=== PATIENT | male | born 1955 | race Caucasian/White ===

== ENCOUNTER → 2016-10-11 | Outpatient (CLI) | payer OTHER | LOC: M LAB 14:00 | PROVIDERS: ATTEND Family Medicine | DX: E11.65 Type 2 diabetes mellitus with hyperglycemia (principal) ==

== ENCOUNTER → 2017-04-11 | Outpatient (CLI) | payer OTHER ==
[2017-04-11 14:22] LABS: BASO % 0.4 % (0.0-1.0); EOS # 0.2 K/mm3 (0.0-0.50); EOS % 2.5 % (0.0-3.0); LARGE UNSTAINED CELL # 0.1 K/mm3 (0.0-0.4); LARGE UNSTAINED CELL % 1.4 % (0.0-4.0); LYMPH # 2.3 K/mm3 (1.5-4.5); LYMPH % 31.6 % (24.0-44.0); MEAN CORPUSCULAR HEMOGLOBIN 34.3 pg (27.0-33.0); MEAN CORPUSCULAR HGB CONC 33.8 g/dl (32.0-36.5); MEAN CORPUSCULAR VOLUME 101.6 fl (80.0-96.0); MONO # 0.5 K/mm3 (0.0-0.8); MONO % 6.4 % (0.0-5.0); NEUTROPHILS # 4.1 K/mm3 (1.8-7.7); NEUTROPHILS % 57.7 % (36.0-66.0); PLATELET COUNT, AUTOMATED 161 k/mm3 (150-450); RED CELL DISTRIBUTION WIDTH 14.3 % (11.5-14.5)
[2017-04-11 14:43] LABS: ALBUMIN/GLOBULIN RATIO 1.25 (1.00-1.93); BILIRUBIN,TOTAL 0.8 MG/DL (0.2-1.0); CALCIUM LEVEL 9.6 MG/DL (8.8-10.2); CREATININE FOR GFR 1.5 MG/DL (0.70-1.30); GLOMERULAR FILTRATION RATE 50.3 (>49); POTASSIUM SERUM 4.5 MEQ/L (3.5-5.1); TOTAL PROTEIN 7.2 GM/DL (6.4-8.2)
== END ==
LOC: M LAB 13:32
PROVIDERS: ATTEND Family Medicine
DX: E11.65 Type 2 diabetes mellitus with hyperglycemia (principal)

== ENCOUNTER 2017-07-18 12:20 | Outpatient (RCR) | payer OTHER | END 2017-07-19 | LOC: M CR 12:20 | PROVIDERS: ATTEND Internal Medicine Cardiovascular Disease | DX: I25.10 Atherosclerotic heart disease of native coronary artery without angina pectoris (principal); Z95.1 Presence of aortocoronary bypass graft ==

== ENCOUNTER 2017-07-20 09:22 | Outpatient (RCR) | payer OTHER | END 2017-08-19 | LOC: M CR 09:22 | DX: Z51.89 Encounter for other specified aftercare (principal); Z95.1 Presence of aortocoronary bypass graft; I25.10 Atherosclerotic heart disease of native coronary artery without angina pectoris ==

== ENCOUNTER 2017-08-21 12:00 | Outpatient (RCR) | payer OTHER ==
[2017-08-29 14:42] LABS: BEDSIDE GLUCOSE 142 MG/DL (80-115)
== END 2017-09-19 ==
LOC: M CR 12:00
DX: Z51.89 Encounter for other specified aftercare (principal); I25.10 Atherosclerotic heart disease of native coronary artery without angina pectoris

== ENCOUNTER 2017-09-20 09:52 | Outpatient (RCR) | payer OTHER | END 2017-10-17 | LOC: M CR 09:52 | DX: Z51.89 Encounter for other specified aftercare (principal); I25.10 Atherosclerotic heart disease of native coronary artery without angina pectoris ==

== ENCOUNTER → 2018-01-15 | Outpatient (CLI) | payer OTHER ==
[2018-01-15 14:24] LABS: BASO % 0.3 % (0.0-1.0); EOS # 0.2 10^3/uL (0.0-0.50); EOS % 2.6 % (0.0-3.0); HEMATOCRIT 41.3 % (42.0-52.0); HEMOGLOBIN 14.3 g/dl (13.5-17.5); IMMATURE GRANULOCYTE % 0.3 % (0-3.0); LYMPH # 2.1 10^3/uL (1.5-4.5); LYMPH % 31.2 % (24.0-44.0); MEAN CORPUSCULAR HEMOGLOBIN 33.1 pg (27.0-33.0); MEAN CORPUSCULAR HGB CONC 34.6 g/dl (32.0-36.5); MEAN CORPUSCULAR VOLUME 95.6 fl (80.0-96.0); MONO # 0.6 10^3/uL (0.0-0.8); MONO % 8.3 % (0.0-5.0); NEUTROPHILS # 3.8 10^3/uL (1.8-7.7); NEUTROPHILS % 57.3 % (36.0-66.0); PLATELET COUNT, AUTOMATED 167 10^3/uL (150-450); RED BLOOD COUNT 4.32 10^6/uL (4.30-6.10); RED CELL DISTRIBUTION WIDTH 14.2 % (11.5-14.5); WHITE BLOOD COUNT 6.6 10^3/uL (4.0-10.0)
[2018-01-15 15:18] LABS: CREATININE, URINE 55.8 MG/DL; MALB URINE SIEMENS 37.1 MG/L; MAU/CREAT RATIO 66.4 MCG/MG (0.0-30.0)
[2018-01-15 15:33] LABS: ESTIMATED AVERAGE GLUCOSE 134 MG/DL (60-110); HEMOGLOBIN A1c 6.3 %
[2018-01-15 15:34] LABS: ALBUMIN/GLOBULIN RATIO 1.33 (1.00-1.93); ALKALINE PHOSPHATASE 69 U/L (45-117); ALT/SGPT 49 U/L (12-78); ANION GAP 7 MEQ/L (8-16); AST/SGOT 35 U/L (7-37); BILIRUBIN,TOTAL 0.5 MG/DL (0.2-1.0); BLOOD UREA NITROGEN 13 MG/DL (7-18); CARBON DIOXIDE LEVEL 27 MEQ/L (21-32); CHLORIDE LEVEL 107 MEQ/L (98-107); CHOLESTEROL LEVEL 157 MG/DL (<200); CREATININE FOR GFR 1.32 MG/DL (0.70-1.30); GLOMERULAR FILTRATION RATE 58.3 (>49); GLUCOSE, FASTING 139 MG/DL (70-100); HDL CHOLESTEROL 47 MG/DL (>40); LDL CHOLESTEROL 74.8 MG/DL (<100); NON-HDL-C 110 MG/DL; POTASSIUM SERUM 4.4 MEQ/L (3.5-5.1); SODIUM LEVEL 141 MEQ/L (136-145); TRIGLYCERIDES LEVEL 176 MG/DL (<150)
== END ==
LOC: M LAB 13:54
DX: E11.69 Type 2 diabetes mellitus with other specified complication (principal)

== ENCOUNTER → 2018-03-27 | Outpatient (CLI) | payer OTHER | LOC: M RAD 14:25 | DX: R35.1 Nocturia (principal); R35.0 Frequency of micturition; R39.198 Other difficulties with micturition | CPT/HCPCS: 76857 ==

== ENCOUNTER → 2018-07-18 | Outpatient (CLI) | payer OTHER ==
[2018-07-18 15:03] LABS: ALBUMIN 3.8 GM/DL (3.2-5.2); ALBUMIN/GLOBULIN RATIO 1.23 (1.00-1.93); ALKALINE PHOSPHATASE 82 U/L (45-117); ALT/SGPT 101 U/L (12-78); ANION GAP 12 MEQ/L (8-16); AST/SGOT 68 U/L (7-37); BILIRUBIN,TOTAL 0.6 MG/DL (0.2-1.0); BLOOD UREA NITROGEN 16 MG/DL (7-18); CALCIUM LEVEL 8.9 MG/DL (8.8-10.2); CARBON DIOXIDE LEVEL 22 MEQ/L (21-32); CHLORIDE LEVEL 108 MEQ/L (98-107); CREATININE FOR GFR 1.52 MG/DL (0.70-1.30); GLOMERULAR FILTRATION RATE 49.4 (>49); GLUCOSE, FASTING 153 MG/DL (70-100); POTASSIUM SERUM 4.6 MEQ/L (3.5-5.1); SODIUM LEVEL 142 MEQ/L (136-145); TOTAL PROTEIN 6.9 GM/DL (6.4-8.2)
[2018-07-18 15:30] LABS: ESTIMATED AVERAGE GLUCOSE 143 MG/DL (60-110); HEMOGLOBIN A1c 6.6 %
== END ==
LOC: M LAB 13:52
DX: E11.69 Type 2 diabetes mellitus with other specified complication (principal)
CPT/HCPCS: 80053

== ENCOUNTER → 2019-01-21 | Outpatient (CLI) | payer MEDICARE, OTHER ==
[2019-01-21 15:34] LABS: HEMOGLOBIN A1c 7.1 %
[2019-01-21 15:36] LABS: BILIRUBIN,TOTAL 0.9 MG/DL (0.2-1.0); CALCIUM LEVEL 9.4 MG/DL (8.8-10.2); CHOLESTEROL RISK RATIO 3.717 (<5); CREATININE FOR GFR 1.36 MG/DL (0.70-1.30); GLOMERULAR FILTRATION RATE 56.2 (>49); POTASSIUM SERUM 4.5 MEQ/L (3.5-5.1); TOTAL PROTEIN 7.1 GM/DL (6.4-8.2)
[2019-01-21 15:38] LABS: BASO % 0.4 % (0.0-1.0); EOS # 0.2 10^3/uL (0.0-0.50); EOS % 2.2 % (0.0-3.0); HEMATOCRIT 43.6 % (42.0-52.0); HEMOGLOBIN 14.9 g/dl (13.5-17.5); LYMPH # 2.3 10^3/uL (1.5-4.5); LYMPH % 34.2 % (24.0-44.0); MEAN CORPUSCULAR HEMOGLOBIN 34.5 pg (27.0-33.0); MEAN CORPUSCULAR HGB CONC 34.2 g/dl (32.0-36.5); MEAN CORPUSCULAR VOLUME 100.9 fl (80.0-96.0); MONO # 0.6 10^3/uL (0.0-0.8); MONO % 8.8 % (0.0-5.0); NEUTROPHILS # 3.7 10^3/uL (1.8-7.7); NEUTROPHILS % 54.1 % (36.0-66.0); PLATELET COUNT, AUTOMATED 156 10^3/uL (150-450); RED BLOOD COUNT 4.32 10^6/uL (4.30-6.10); WHITE BLOOD COUNT 6.9 10^3/uL (4.0-10.0)
[2019-01-21 15:44] LABS: CREATININE, URINE 71.2 MG/DL; MAU/CREAT RATIO 67.4 MCG/MG (0.0-30.0)
== END ==
LOC: M LAB 14:18
PROVIDERS: ATTEND Family Medicine
DX: E11.69 Type 2 diabetes mellitus with other specified complication (principal)

== ENCOUNTER → 2019-04-22 | Outpatient (CLI) | payer MEDICARE, OTHER ==
[2019-04-22 14:58] LABS: ALBUMIN 3.8 GM/DL (3.2-5.2); BILIRUBIN,TOTAL 0.7 MG/DL (0.2-1.0); CALCIUM LEVEL 9.5 MG/DL (8.8-10.2); CREATININE FOR GFR 1.43 MG/DL (0.70-1.30); GLOMERULAR FILTRATION RATE 52.8 (>49); POTASSIUM SERUM 4.4 MEQ/L (3.5-5.1); TOTAL PROTEIN 7.1 GM/DL (6.4-8.2)
[2019-04-22 15:18] LABS: HEMOGLOBIN A1c 6.7 %
== END ==
LOC: M LAB 13:47
PROVIDERS: ATTEND Family Medicine
DX: E11.69 Type 2 diabetes mellitus with other specified complication (principal)

== ENCOUNTER → 2019-07-22 | Outpatient (CLI) | payer MEDICARE, OTHER ==
[2019-07-22 15:12] LABS: CALCIUM LEVEL 9.7 MG/DL (8.8-10.2); CREATININE FOR GFR 1.37 MG/DL (0.70-1.30); GLOMERULAR FILTRATION RATE 55.5 (>49); POTASSIUM SERUM 4.8 MEQ/L (3.5-5.1)
== END ==
LOC: M LAB 13:47
PROVIDERS: ATTEND Family Medicine
DX: E11.69 Type 2 diabetes mellitus with other specified complication (principal)

== ENCOUNTER → 2019-10-15 | Outpatient (CLI) | payer MEDICARE, OTHER ==
[2019-10-15 14:16] LABS: HEMOGLOBIN A1c 6.8 %
[2019-10-15 14:24] LABS: BLOOD UREA NITROGEN 11 MG/DL (7-18); CALCIUM LEVEL 9.6 MG/DL (8.8-10.2); CARBON DIOXIDE LEVEL 25 MEQ/L (21-32); CHLORIDE LEVEL 105 MEQ/L (98-107); CREATININE FOR GFR 1.21 MG/DL (0.70-1.30); GLOMERULAR FILTRATION RATE > 60.0 (>49); GLUCOSE, FASTING 168 MG/DL (70-100); POTASSIUM SERUM 4.7 MEQ/L (3.5-5.1); SODIUM LEVEL 136 MEQ/L (136-145)
== END ==
LOC: M LAB 13:07
PROVIDERS: ATTEND Family Medicine
DX: E11.69 Type 2 diabetes mellitus with other specified complication (principal)

== ENCOUNTER → 2020-01-19 | Outpatient (CLI) | payer MEDICARE, OTHER ==
[2020-01-19 15:16] LABS: HEMOGLOBIN A1c 6.8 %
[2020-01-19 15:32] LABS: CHOLESTEROL RISK RATIO 2.48 (<5)
[2020-01-19 15:40] LABS: CREATININE, URINE 42.9 MG/DL; MALB URINE SIEMENS 46.4 MG/L; MAU/CREAT RATIO 108.1 MCG/MG (0.0-30.0)
== END ==
LOC: M LAB 14:38
PROVIDERS: ATTEND Physician Assistant Medical
DX: E11.69 Type 2 diabetes mellitus with other specified complication (principal)

== ENCOUNTER → 2020-07-26 | Outpatient (CLI) | payer SELFPAY | LOC: M LABSMTC 15:47 | PROVIDERS: ATTEND Pediatrics | DX: Z20.828 Contact with and (suspected) exposure to other viral communicable diseases (principal) ==

== ENCOUNTER → 2020-08-23 | Outpatient (CLI) | payer MEDICARE, OTHER ==
[2020-08-23 16:23] LABS: HEMOGLOBIN A1c 6.1 %
[2020-08-24 15:10] LABS: Lyme Disease IgG/IgM Antibodie <0.91 ISR (0.00-0.90); Lyme Disease IgM Ab Quantitati <0.80 index (0.00-0.79)
== END ==
LOC: M LAB 13:03
PROVIDERS: ATTEND Physician Assistant Medical
DX: E11.69 Type 2 diabetes mellitus with other specified complication (principal); S60.862A Insect bite (nonvenomous) of left wrist, initial encounter; X58.XXXA Exposure to other specified factors, initial encounter; Y92.89 Other specified places as the place of occurrence of the external cause; Y93.89 Activity, other specified; Y99.8 Other external cause status

== ENCOUNTER → 2021-02-22 | Outpatient (CLI) | payer MEDICARE, OTHER ==
[2021-02-22 15:28] LABS: ALBUMIN 3.9 GM/DL (3.2-5.2); BILIRUBIN,TOTAL 1.2 MG/DL (0.2-1.0); CALCIUM LEVEL 9.5 MG/DL (8.8-10.2); CHOLESTEROL RISK RATIO 1.655 (<5); CREATININE FOR GFR 1.44 MG/DL (0.70-1.30); GLOMERULAR FILTRATION RATE 52.1 (>49); POTASSIUM SERUM 4.9 MEQ/L (3.5-5.1)
[2021-02-22 15:35] LABS: CREATININE, URINE 33.7 MG/DL; MALB URINE SIEMENS 67.6 MG/L; MAU/CREAT RATIO 200.5 MCG/MG (0.0-30.0)
[2021-02-22 18:03] LABS: HEMOGLOBIN A1c 5.6 %
== END ==
LOC: M LAB 14:14
PROVIDERS: ATTEND Physician Assistant Medical
DX: E11.69 Type 2 diabetes mellitus with other specified complication (principal); E78.5 Hyperlipidemia, unspecified

== ENCOUNTER → 2021-04-26 | Outpatient (REF) | payer MEDICARE, OTHER ==
[2021-04-26 18:39] LABS: MAGNESIUM LEVEL 2.3 MG/DL (1.8-2.4)
[2021-04-27 09:39] LABS: FOLATE 10.3 NG/ML
== END ==
LOC: M LAB REF 17:55
PROVIDERS: ATTEND Nurse Practitioner Family
DX: D64.9 Anemia, unspecified (principal); E83.42 Hypomagnesemia

== ENCOUNTER → 2021-05-05 | Outpatient (CLI) | payer MEDICARE, OTHER ==
[2021-05-05 15:38] LABS: BLOOD UREA NITROGEN 8 MG/DL (7-18); CALCIUM LEVEL 9.2 MG/DL (8.8-10.2); CARBON DIOXIDE LEVEL 26 MEQ/L (21-32); CHLORIDE LEVEL 100 MEQ/L (98-107); CHOLESTEROL LEVEL 95 MG/DL (<200); CHOLESTEROL RISK RATIO 1.507 (<5); CREATININE FOR GFR 1.26 MG/DL (0.70-1.30); GLOMERULAR FILTRATION RATE > 60.0 (>49); GLUCOSE, FASTING 105 MG/DL (70-100); HDL CHOLESTEROL 63 MG/DL (>40); LDL CHOLESTEROL 20 MG/DL (<100); NON-HDL-C 32 MG/DL; POTASSIUM SERUM 4.7 MEQ/L (3.5-5.1); SODIUM LEVEL 135 MEQ/L (136-145); TRIGLYCERIDES LEVEL 61 MG/DL (<150)
== END ==
LOC: M LAB 14:07
PROVIDERS: ATTEND Physician Assistant
DX: E78.2 Mixed hyperlipidemia (principal); I10 Essential (primary) hypertension

== ENCOUNTER → 2021-05-19 | Outpatient (CLI) | payer MEDICARE, OTHER ==
[2021-05-19 15:44] LABS: CALCIUM LEVEL 9.2 MG/DL (8.8-10.2); CREATININE FOR GFR 2.08 MG/DL (0.70-1.30); GLOMERULAR FILTRATION RATE 34.1 (>49); POTASSIUM SERUM 4.8 MEQ/L (3.5-5.1)
== END ==
LOC: M LAB 14:53
PROVIDERS: ATTEND Physician Assistant
DX: I10 Essential (primary) hypertension (principal)

== ENCOUNTER → 2021-05-31 | Outpatient (REF) | payer MEDICARE, OTHER ==
[2021-05-31 18:56] LABS: PERCENT SATURATION 49.4 % (19.7-50.0)
== END ==
LOC: M LAB REF 17:06
PROVIDERS: ATTEND Nurse Practitioner Family
DX: D50.9 Iron deficiency anemia, unspecified (principal)

== ENCOUNTER → 2021-06-13 | Outpatient (CLI) | payer MEDICARE, OTHER ==
--- NOTE | 2021-06-13 18:27 | REP ---
INDICATION: CKD 3A, RETENTION OF URINE. COMPARISON: 05/07/2015. TECHNIQUE: Real-time sonographic evaluation of the kidneys and urinary bladder is performed. FINDINGS: Renal cortical echogenicity pattern is normal bilaterally and contours are smooth. There is no hydronephrosis bilaterally. A simple cyst in the mid right kidney measures 1.5 cm in diameter. A simple cyst in the mid left kidney measures 2.3 cm in diameter. The right kidney measures 10.0 x 4.0 x 5.8 cm. Left renal dimensions are 13.7 x 6.2 x 7.0 cm. Urinary bladder measures 14.6 x 7.0 x 5.3 cm, total volume 352 cc. Postvoid residual is 221 cc, 63% of the original volume. No bladder wall mass or calculus is seen. Ureteral jets could not be visualized with Doppler color evaluation. IMPRESSION: No hydronephrosis. Bilateral renal cysts. Postvoid residual 63% with no evidence of bladder wall mass or calculus. <Electronically signed by Theo Brooke > 06/13/21 [id number]
== END ==
LOC: M RAD 14:37
PROVIDERS: ATTEND Nurse Practitioner Family
DX: N18.31 Chronic kidney disease, stage 3a (principal); R33.9 Retention of urine, unspecified; N28.1 Cyst of kidney, acquired

== ENCOUNTER → 2021-10-18 | Outpatient (CLI) | payer MEDICARE, OTHER ==
[2021-10-18 14:19] LABS: CALCIUM LEVEL 9.4 MG/DL (8.8-10.2); CREATININE FOR GFR 1.76 MG/DL (0.70-1.30); GLOMERULAR FILTRATION RATE 41.3 (>49); POTASSIUM SERUM 3.7 MEQ/L (3.5-5.1)
[2021-10-18 15:10] LABS: HEMOGLOBIN A1c 5.3 %
== END ==
LOC: M LAB 13:22
PROVIDERS: ATTEND Nurse Practitioner Family
DX: E11.69 Type 2 diabetes mellitus with other specified complication (principal)

== ENCOUNTER → 2022-04-13 | Outpatient (REF) | payer MEDICARE, OTHER ==
[2022-04-14 17:34] LABS: PERCENT SATURATION 66.7 % (19.7-50.0)
[2022-04-14 17:59] LABS: RBC, URINE NONE SEEN /hpf (0-3); SQUAMOUS EPITHELIAL CELL URINE SMALL AMOUNT /hpf (SMALL AMT); WBC, URINE NONE SEEN /hpf (0-3)
[2022-04-14 18:00] LABS: BACTERIA, URINE SMALL AMOUNT; HYALINE CAST, URINE NONE SEEN /lpf (0-1); MUCUS, URINE SMALL AMOUNT (NEGATIVE)
== END ==
LOC: M LAB REF 16:34
PROVIDERS: ATTEND Nurse Practitioner Family
DX: D50.9 Iron deficiency anemia, unspecified (principal); R31.9 Hematuria, unspecified

== ENCOUNTER → 2022-05-04 | Outpatient (CLI) | payer MEDICARE, OTHER ==
[2022-05-04 16:09] LABS: CREATININE, URINE 36.9 MG/DL; MALB URINE SIEMENS 43.8 MG/L; MAU/CREAT RATIO 118.6 MCG/MG (0.0-30.0)
[2022-05-04 16:09] LABS: ALBUMIN 2.6 GM/DL (3.2-5.2); BILIRUBIN,TOTAL 0.7 MG/DL (0.2-1.0); CALCIUM LEVEL 9.4 MG/DL (8.8-10.2); CHOLESTEROL RISK RATIO 1.637 (<5); CREATININE FOR GFR 1.53 MG/DL (0.70-1.30); GLOMERULAR FILTRATION RATE 48.4 (>49); POTASSIUM SERUM 3.8 MEQ/L (3.5-5.1); TOTAL PROTEIN 6.3 GM/DL (6.4-8.2)
[2022-05-04 17:56] LABS: HEMOGLOBIN A1c 4.9 %
== END ==
LOC: M LAB 14:24
PROVIDERS: ATTEND Nurse Practitioner Family
DX: E11.69 Type 2 diabetes mellitus with other specified complication (principal)

== ENCOUNTER → 2022-10-25 | Outpatient (CLI) | payer MEDICARE, OTHER ==
[2022-10-25 14:20] LABS: ALBUMIN 2.7 G/DL (3.2-5.2); BILIRUBIN,TOTAL 1.5 MG/DL (0.3-1.2); CALCIUM LEVEL 8.8 MG/DL (8.3-10.6); CREATININE FOR GFR 1.47 MG/DL (0.70-1.30); GLOMERULAR FILTRATION RATE 50.7 (>49); POTASSIUM SERUM 4.2 MMOL/L (3.5-5.1); TOTAL PROTEIN 6.5 G/DL (5.7-8.2)
[2022-10-25 14:35] LABS: HEMOGLOBIN A1c 4.6 % (4.0-6.0)
== END ==
LOC: M LAB 13:10
PROVIDERS: ATTEND Nurse Practitioner Family
DX: E11.69 Type 2 diabetes mellitus with other specified complication (principal); I10 Essential (primary) hypertension; E78.5 Hyperlipidemia, unspecified

== ENCOUNTER → 2022-12-11 | Outpatient (CLI) | payer MEDICARE, OTHER ==
[2022-12-11 15:56] LABS: BASO % 0.3 % (0.0-1.0); EOS # 0.1 10^3/uL (0.0-0.5); EOS % 1.5 % (0.0-3.0); HEMATOCRIT 32.1 % (42.0-52.0); HEMOGLOBIN 10.5 g/dl (13.5-17.5); LYMPH # 1.5 10^3/uL (1.5-5.0); LYMPH % 22.6 % (24.0-44.0); MEAN CORPUSCULAR HGB CONC 32.7 g/dl (32.0-36.5); MEAN CORPUSCULAR VOLUME 109.9 fl (80.0-96.0); MONO # 0.7 10^3/uL (0.0-0.8); MONO % 9.9 % (2.0-8.0); NEUTROPHILS # 4.3 10^3/uL (1.5-8.5); NEUTROPHILS % 65.4 % (36.0-66.0); RED BLOOD COUNT 2.92 10^6/uL (4.30-6.10); WHITE BLOOD COUNT 6.5 10^3/uL (4.0-10.0)
[2022-12-11 16:09] LABS: INR 1.12; PARTIAL THROMBOPLASTIN TIME 32.1 SECONDS (24.8-34.2); PROTHROMBIN TIME 14.6 SECONDS (12.5-14.5)
[2022-12-11 16:17] LABS: ALBUMIN 2.3 G/DL (3.2-5.2); BILIRUBIN,TOTAL 1.5 MG/DL (0.3-1.2); TOTAL PROTEIN 6.1 G/DL (5.7-8.2)
[2022-12-11 16:18] LABS: FERRITIN 417.9 NG/ML (10.5-307.3)
[2022-12-11 16:59] LABS: PLATELET COUNT, AUTOMATED 87 10^3/uL (150-450)
== END ==
LOC: M LAB 14:48
PROVIDERS: ATTEND Nurse Practitioner Family
DX: R58 Hemorrhage, not elsewhere classified (principal)

== ENCOUNTER 2023-03-05 12:58 | Inpatient (IN) | payer MEDICARE, OTHER ==
[~2023-03-05] VITALS: Ht 180.3 cm; Wt 76.5 kg
[2023-03-05 14:05] LABS: VENOUS PH 7.296 UNITS (7.330-7.430)
[2023-03-05 14:06] LABS: VENOUS BASE EXCESS -6.2 (-2.0-2.0); VENOUS HCO3 19.9 MMOL/L (23.0-27.0); VENOUS O2 SATURATION 68.1 % (60.0-80.0); VENOUS PARTIAL PRESSURE CO2 41.8 mmHg (38.0-50.0); VENOUS PARTIAL PRESSURE O2 39.6 mmHg (30.0-50.0); VENOUS STANDARD HCO3 18.9 MMOL/L; VENOUS TOTAL CO2 21.2 MMOL/L (24.0-28.0)
[2023-03-05 14:12] LABS: EOS # 0.1 10^3/uL (0.0-0.5); EOS % 0.9 % (0.0-3.0); HEMATOCRIT 26.5 % (42.0-52.0); HEMOGLOBIN 8.5 g/dl (13.5-17.5); LYMPH # 1.8 10^3/uL (1.5-5.0); LYMPH % 27.1 % (24.0-44.0); MEAN CORPUSCULAR HEMOGLOBIN 34.3 pg (27.0-33.0); MEAN CORPUSCULAR HGB CONC 32.1 g/dl (32.0-36.5); MEAN CORPUSCULAR VOLUME 106.9 fl (80.0-96.0); MONO # 0.3 10^3/uL (0.0-0.8); MONO % 4.9 % (2.0-8.0); NEUTROPHILS # 4.4 10^3/uL (1.5-8.5); NEUTROPHILS % 66.8 % (36.0-66.0); RED BLOOD COUNT 2.48 10^6/uL (4.30-6.10); WHITE BLOOD COUNT 6.6 10^3/uL (4.0-10.0)
[2023-03-05 14:14] LABS: PLATELET COUNT, AUTOMATED 80 10^3/uL (150-450)
[2023-03-05 14:22] LABS: INR 1.13; PROTHROMBIN TIME 14.7 SECONDS (12.5-14.5)
[2023-03-05 14:37] LABS: ALBUMIN 1.6 G/DL (3.2-5.2); BILIRUBIN,DIRECT 0.5 MG/DL (<0.4); BILIRUBIN,TOTAL 0.9 MG/DL (0.3-1.2); CALCIUM LEVEL 8.7 MG/DL (8.3-10.6); CREATININE FOR GFR 3.42 MG/DL (0.70-1.30); GLOMERULAR FILTRATION RATE 19.1 (>49); POTASSIUM SERUM 4.3 MMOL/L (3.5-5.1); TOTAL PROTEIN 5.9 G/DL (5.7-8.2)
[2023-03-05 14:40] LABS: THYROID STIMULATING HORMONE 4.959 uIU/ML (0.55-4.78)
[2023-03-05] MEDS ORDERED: THIAMINE 200MG 2ML VIAL IM ONE (16:45)
[2023-03-05] MEDS ORDERED: LORazepam 2 MG TAB PO PRN ×2 (16:55→20:00)
[2023-03-05] MEDS ORDERED: THIAMINE 100 MG TAB PO SCH (17:00)
[2023-03-05 18:01] LABS: MAGNESIUM LEVEL 2.2 MG/DL (1.8-2.4)
[2023-03-05] MEDS ORDERED: PANTOPRAZOLE 40MG VIAL IV SCH (20:00)
[2023-03-05 20:26] LABS: OSMOLALITY URINE 264 MOSM/KG (50-1400)
[2023-03-05 20:47] LABS: TOTAL PROTEIN,RANDOM URINE 79.5 MG/DL (0.0-14.0)
[2023-03-05 20:51] LABS: CREATININE,RANDOM URINE 110.5 MG/DL
[2023-03-05 20:51] LABS: FREE T4 0.74 NG/DL (0.89-1.76)
[2023-03-05 20:53] LABS: SODIUM,RANDOM URINE < 10 MMOL/L
[2023-03-05] MEDS ORDERED: FUROSEMIDE 100MG/10ML VIAL IV ONE (22:10)
[2023-03-05] MEDS: AUGMENTIN 500MG TAB PO SCH (22:33)
[2023-03-05 23:08] LABS: IONIZED CALCIUM 4.7 MG/DL (4.5-5.3)
[2023-03-05] MEDS ORDERED: B-12100T2 PO (23:08)
[2023-03-05] MEDS ORDERED: OMEP1CAP73 PO (23:08)
[2023-03-05] MEDS ORDERED: ALLO10TA PO (23:08)
[2023-03-05] MEDS ORDERED: B-1100TA2 PO (23:08)
[2023-03-05] MEDS ORDERED: CARV12.5 PO (23:08)
[2023-03-05] MEDS ORDERED: ROSU40TA4 PO (23:08)
[2023-03-05] MEDS ORDERED: HOME MED LIST COMPLETE! XX SCH (23:10)
[2023-03-05 23:18] LABS: HEMATOCRIT 24.3 % (42.0-52.0); HEMOGLOBIN 7.7 g/dl (13.5-17.5)
[2023-03-05 23:36] LABS: URIC ACID 6.3 MG/DL (3.7-9.2)
[2023-03-05 23:38] LABS: CALCIUM LEVEL 7.7 MG/DL (8.3-10.6); CREATININE FOR GFR 3.4 MG/DL (0.70-1.30); GLOMERULAR FILTRATION RATE 19.2 (>49); MAGNESIUM LEVEL 2.2 MG/DL (1.8-2.4); POTASSIUM SERUM 4.4 MMOL/L (3.5-5.1)
[2023-03-06 05:36] LABS: HEMATOCRIT 27.2 % (42.0-52.0); HEMOGLOBIN 8.7 g/dl (13.5-17.5)
[2023-03-06 05:37] LABS: HEMOGLOBIN 8.7 g/dl (13.5-17.5); MEAN CORPUSCULAR HEMOGLOBIN 34.3 pg (27.0-33.0); MEAN CORPUSCULAR HGB CONC 32.2 g/dl (32.0-36.5); MEAN CORPUSCULAR VOLUME 106.3 fl (80.0-96.0); RED BLOOD COUNT 2.54 10^6/uL (4.30-6.10); WHITE BLOOD COUNT 6.1 10^3/uL (4.0-10.0)
[2023-03-06 05:40] LABS: PLATELET COUNT, AUTOMATED 79 10^3/uL (150-450)
[2023-03-06 05:54] LABS: URIC ACID 6.4 MG/DL (3.7-9.2)
[2023-03-06 05:56] LABS: ALBUMIN 1.6 G/DL (3.2-5.2); BILIRUBIN,TOTAL 0.9 MG/DL (0.3-1.2); CREATININE FOR GFR 3.46 MG/DL (0.70-1.30); GLOMERULAR FILTRATION RATE 18.8 (>49); MAGNESIUM LEVEL 2.2 MG/DL (1.8-2.4); POTASSIUM SERUM 4.3 MMOL/L (3.5-5.1); TOTAL PROTEIN 5.9 G/DL (5.7-8.2)
[2023-03-06] MEDS: LEVOTHYROXINE 25MCG TABLET (0.025MG) PO SCH (06:02)
[2023-03-06] MEDS: MULTIVITAMINS/MINERALS THERAP 1 TAB PO SCH (07:19)
[2023-03-06] MEDS: FOLIC ACID 1MG TAB PO SCH (07:19)
[2023-03-06] MEDS: THIAMINE 100 MG TAB PO SCH ×2 (07:19→20:51)
[2023-03-06] MEDS ORDERED: PANTOPRAZOLE 40MG VIAL IV SCH (08:00)
[2023-03-06] MEDS: CIPRODEX OTIC SUSP 7.5ML AS SCH ×2 (09:00→21:23)
[2023-03-06] MEDS ORDERED: FOLIC ACID 1MG TAB PO SCH (09:00)
[2023-03-06] MEDS ORDERED: MULTIVITAMINS/MINERALS THERAP 1 TAB PO SCH (09:00)
[2023-03-06] MEDS ORDERED: FUROSEMIDE 100MG/10ML VIAL IV ONE (11:00)
[2023-03-06 11:50] LABS: C REACTIVE PROTEIN QUANTITATIV 1.5 MG/DL (<1.0)
[2023-03-06 12:03] LABS: PROCALCITONIN 0.28 ng/ml
[2023-03-06] MEDS: MIDODRINE 5 MG TAB PO SCH ×2 (13:28→16:00)
[2023-03-06] MEDS: OCTREOTIDE ACETATE 100MCG/ML VIAL **SC ADMINISTRATION ONLY SC SCH ×2 (13:28→20:00)
[2023-03-06] MEDS: AUGMENTIN 500MG TAB PO SCH ×2 (13:29→21:23)
[2023-03-06 15:24] LABS: SOURCE, BODY FLUID ASCITES
[2023-03-06 15:25] LABS: APPEARANCE, BODY FLUID CLEAR (CLEAR); ASCITES FL COLOR YELLOW (COLORLESS)
[2023-03-06 15:53] LABS: SOURCE, BODY FLUID ALBUMIN ASCITES
[2023-03-06 15:57] LABS: SOURCE, BODY FLUID GLUCOSE ASCITES
[2023-03-06 16:00] LABS: SOURCE, BODY FLUID TOT PROTEIN ASCITES; TOTAL PROTEIN, BODY FLUID 2.5 G/DL (NOT ESTABLISHED)
[2023-03-06] MEDS ORDERED: CIPRODEX OTIC SUSP 7.5ML As Ordered ONE (16:01)
[2023-03-06] MEDS ORDERED: PHENYLEPHRINE 0.5% NASAL SPRAY 15 ML As Ordered ONE (16:01)
[2023-03-06] MEDS ORDERED: LIDOCAINE 2% 100MG/5ML SDV (FOR ANES.) As Ordered ONE (16:07)
[2023-03-06] MEDS ORDERED: propofoL 200 MG/20 ML VIAL As Ordered ONE (16:07)
[2023-03-06] MEDS ORDERED: ONDANSETRON 4MG 2ML VIAL As Ordered ONE (16:08)
[2023-03-06] MEDS ORDERED: fentaNYL 100 MCG/2 ML INJECTION As Ordered ONE (16:08)
[2023-03-06] MEDS ORDERED: VASOPRESSIN INJ 20UNITS/ML 1ML VIAL As Ordered ONE (17:03)
[2023-03-06 17:52] VITALS: BP 126/58; TEMP 96.7; O2SAT 99
[2023-03-06 18:34] VITALS: BP 109/59; O2SAT 88
[2023-03-06 20:00] VITALS: BP 107/58; TEMP 97; O2SAT 100; O2SAT 98
[2023-03-06 22:00] VITALS: BP 107/58
[2023-03-06 23:42] VITALS: BP 98/51; TEMP 97.1; O2SAT 99
[2023-03-06 23:57] VITALS: BP 102/52; TEMP 96.5; O2SAT 100
[2023-03-07] VITALS (23 sets, daily range): BP systolic 96–142; BP diastolic 51–80; TEMP 96.5–98.3; O2SAT 95–100
[2023-03-07] MEDS: OCTREOTIDE ACETATE 100MCG/ML VIAL **SC ADMINISTRATION ONLY SC SCH ×3 (03:39→20:27)
[2023-03-07] MEDS ORDERED: BENZOIN TINCTURE 60ML BTL TOP ONE (05:50)
[2023-03-07] MEDS: LEVOTHYROXINE 25MCG TABLET (0.025MG) PO SCH (06:12)
[2023-03-07 06:30] LABS: C REACTIVE PROTEIN QUANTITATIV 1.3 MG/DL (<1.0)
[2023-03-07 06:37] LABS: PROCALCITONIN 0.29 ng/ml
[2023-03-07 06:43] LABS: ALBUMIN 1.7 G/DL (3.2-5.2); BILIRUBIN,TOTAL 0.7 MG/DL (0.3-1.2); CALCIUM LEVEL 7.8 MG/DL (8.3-10.6); CREATININE FOR GFR 3.81 MG/DL (0.70-1.30); GLOMERULAR FILTRATION RATE 16.8 (>49); MAGNESIUM LEVEL 2.3 MG/DL (1.8-2.4); POTASSIUM SERUM 4.6 MMOL/L (3.5-5.1); TOTAL PROTEIN 5.1 G/DL (5.7-8.2)
[2023-03-07 07:32] LABS: EOS # 0.1 10^3/uL (0.0-0.5); EOS % 0.9 % (0.0-3.0); HEMATOCRIT 23.8 % (42.0-52.0); HEMOGLOBIN 7.6 g/dl (13.5-17.5); LYMPH % 36.1 % (24.0-44.0); MEAN CORPUSCULAR HEMOGLOBIN 34.5 pg (27.0-33.0); MEAN CORPUSCULAR HGB CONC 31.9 g/dl (32.0-36.5); MEAN CORPUSCULAR VOLUME 108.2 fl (80.0-96.0); MONO # 0.3 10^3/uL (0.0-0.8); MONO % 5.7 % (2.0-8.0); NEUTROPHILS # 3.1 10^3/uL (1.5-8.5); NEUTROPHILS % 56.9 % (36.0-66.0); WHITE BLOOD COUNT 5.4 10^3/uL (4.0-10.0)
[2023-03-07 07:42] LABS: PLATELET COUNT, AUTOMATED 76 10^3/uL (150-450)
[2023-03-07] MEDS: MIDODRINE 5 MG TAB PO SCH ×3 (08:00→16:00)
[2023-03-07] MEDS: MULTIVITAMINS/MINERALS THERAP 1 TAB PO SCH (09:12)
[2023-03-07] MEDS: FOLIC ACID 1MG TAB PO SCH (09:12)
[2023-03-07] MEDS: AUGMENTIN 500MG TAB PO SCH ×2 (09:12→20:26)
[2023-03-07] MEDS: THIAMINE 100 MG TAB PO SCH ×2 (09:12→20:27)
[2023-03-07] MEDS: PANTOPRAZOLE 40MG TAB (PROTONIX) PO SCH (09:12)
[2023-03-07] MEDS: CIPRODEX OTIC SUSP 7.5ML AS SCH ×2 (09:13→20:27)
[2023-03-07] MEDS ORDERED: HEPARIN 1,000UNITS/ML 10ML VIAL (FOR RADIOLOGY & DIALYSIS ONLY) XX SCH (10:15)
[2023-03-07] MEDS ORDERED: SODIUM CHLORIDE 0.9% 1000ML IV PRN (10:15)
[2023-03-07] MEDS ORDERED: HEPARIN 1,000UNITS/ML 10ML VIAL (FOR RADIOLOGY & DIALYSIS ONLY) IV PRN (10:15)
[2023-03-07 10:21] LABS: HEPATITIS B SURFACE ANTIBODY NEGATIVE (POSITIVE)
[2023-03-07 10:54] LABS: HEPATITIS B CORE ANTIBODY IGM NEGATIVE (NEGATIVE)
[2023-03-07 10:57] LABS: INR 1.35; PROTHROMBIN TIME 16.9 SECONDS (12.5-14.5)
[2023-03-07 10:58] LABS: PARTIAL THROMBOPLASTIN TIME 32.6 SECONDS (24.8-34.2)
[2023-03-07] MEDS ORDERED: MIDAZOLAM INJ 2MG/2ML VIAL As Ordered ONE (11:42)
[2023-03-07] MEDS ORDERED: fentaNYL 100 MCG/2 ML INJECTION As Ordered ONE (11:42)
[2023-03-07] MEDS ORDERED: HEPARIN 1,000UNITS/ML 10ML VIAL (FOR RADIOLOGY & DIALYSIS ONLY) As Ordered ONE (11:43)
[2023-03-07] MEDS ORDERED: LIDOCAINE W/EPINEPHRINE 1% 20ML VIAL As Ordered ONE (11:43)
[2023-03-07 13:55] LABS: HEMATOCRIT 23.4 % (42.0-52.0); HEMOGLOBIN 7.5 g/dl (13.5-17.5)
[2023-03-07 18:15] LABS: HEMATOCRIT 33.3 % (42.0-52.0)
[2023-03-07 18:19] LABS: HEMOGLOBIN 11.2 g/dl (13.5-17.5)
[2023-03-08] VITALS (19 sets, daily range): BP systolic 115–147; BP diastolic 58–68; TEMP 97.1–97.9; O2SAT 96–99
[2023-03-08] MEDS: OCTREOTIDE ACETATE 100MCG/ML VIAL **SC ADMINISTRATION ONLY SC SCH (03:26)
[2023-03-08] MEDS ORDERED: SODIUM CHLORIDE 0.9% 1000ML IV PRN (05:15)
[2023-03-08] MEDS ORDERED: HEPARIN 1,000UNITS/ML 10ML VIAL (FOR RADIOLOGY & DIALYSIS ONLY) IV PRN (05:15)
[2023-03-08] MEDS ORDERED: HEPARIN 1,000UNITS/ML 10ML VIAL (FOR RADIOLOGY & DIALYSIS ONLY) XX SCH (05:15)
[2023-03-08 05:16] LABS: EOS # 0.1 10^3/uL (0.0-0.5); EOS % 1.8 % (0.0-3.0); HEMATOCRIT 30.1 % (42.0-52.0); HEMOGLOBIN 9.9 g/dl (13.5-17.5); LYMPH # 1.7 10^3/uL (1.5-5.0); LYMPH % 34.4 % (24.0-44.0); MEAN CORPUSCULAR HEMOGLOBIN 33.1 pg (27.0-33.0); MEAN CORPUSCULAR HGB CONC 32.9 g/dl (32.0-36.5); MEAN CORPUSCULAR VOLUME 100.7 fl (80.0-96.0); MONO # 0.3 10^3/uL (0.0-0.8); MONO % 6.1 % (2.0-8.0); NEUTROPHILS # 2.9 10^3/uL (1.5-8.5); NEUTROPHILS % 57.3 % (36.0-66.0); RED BLOOD COUNT 2.99 10^6/uL (4.30-6.10); WHITE BLOOD COUNT 5.1 10^3/uL (4.0-10.0)
[2023-03-08 05:31] LABS: PLATELET COUNT, AUTOMATED 68 10^3/uL (150-450)
[2023-03-08 05:33] LABS: C REACTIVE PROTEIN QUANTITATIV 1.1 MG/DL (<1.0)
[2023-03-08] MEDS: FOLIC ACID 1MG TAB PO SCH (06:08)
[2023-03-08] MEDS: LEVOTHYROXINE 25MCG TABLET (0.025MG) PO SCH (06:08)
[2023-03-08] MEDS: CIPRODEX OTIC SUSP 7.5ML AS SCH ×2 (06:08→20:31)
[2023-03-08] MEDS: MIDODRINE 5 MG TAB PO SCH (08:00)
[2023-03-08 08:33] LABS: PROCALCITONIN 0.26 ng/ml
[2023-03-08 08:40] LABS: ALBUMIN 1.9 G/DL (3.2-5.2); BILIRUBIN,TOTAL 1.4 MG/DL (0.3-1.2); CALCIUM LEVEL 7.7 MG/DL (8.3-10.6); CREATININE FOR GFR 2.36 MG/DL (0.70-1.30); GLOMERULAR FILTRATION RATE 29.3 (>49); MAGNESIUM LEVEL 1.7 MG/DL (1.8-2.4); POTASSIUM SERUM 3.6 MMOL/L (3.5-5.1); TOTAL PROTEIN 4.8 G/DL (5.7-8.2)
[2023-03-08] MEDS ORDERED: MAG SULF 1GM/100ML (MAG RUN) 1 GM in IV 1 EA IV ONE (10:00)
[2023-03-08] MEDS: MULTIVITAMINS/MINERALS THERAP 1 TAB PO SCH (13:27)
[2023-03-08] MEDS: MAGNESIUM OXIDE 400MG TAB (MAG-OX) PO SCH ×2 (13:27→20:31)
[2023-03-08] MEDS: PANTOPRAZOLE 40MG TAB (PROTONIX) PO SCH (13:27)
[2023-03-08] MEDS: AUGMENTIN 500MG TAB PO SCH ×2 (13:27→20:31)
[2023-03-08] MEDS: THIAMINE 100 MG TAB PO SCH ×2 (13:27→20:32)
[2023-03-08] MEDS ORDERED: traMADol 50 MG TAB PO PRN (15:25)
[2023-03-08] MEDS ORDERED: ACETAMINOPHEN 500 MG TAB PO PRN (15:25)
[2023-03-09 03:51] VITALS: BP 145/72; TEMP 98.4; O2SAT 98
[2023-03-09] MEDS: LEVOTHYROXINE 25MCG TABLET (0.025MG) PO SCH (05:20)
[2023-03-09 05:34] LABS: HEMATOCRIT 27.3 % (42.0-52.0); HEMOGLOBIN 9.1 g/dl (13.5-17.5); LYMPH # 1.1 10^3/uL (1.5-5.0); LYMPH % 26.8 % (24.0-44.0); MEAN CORPUSCULAR HEMOGLOBIN 33.5 pg (27.0-33.0); MEAN CORPUSCULAR HGB CONC 33.3 g/dl (32.0-36.5); MEAN CORPUSCULAR VOLUME 100.4 fl (80.0-96.0); MONO # 0.3 10^3/uL (0.0-0.8); MONO % 6.6 % (2.0-8.0); NEUTROPHILS # 2.6 10^3/uL (1.5-8.5); NEUTROPHILS % 65.3 % (36.0-66.0); RED BLOOD COUNT 2.72 10^6/uL (4.30-6.10)
[2023-03-09 05:45] LABS: ALBUMIN 2.1 G/DL (3.2-5.2); CALCIUM LEVEL 7.4 MG/DL (8.3-10.6); CREATININE FOR GFR 1.73 MG/DL (0.70-1.30); GLOMERULAR FILTRATION RATE 41.9 (>49); MAGNESIUM LEVEL 1.7 MG/DL (1.8-2.4); POTASSIUM SERUM 3.5 MMOL/L (3.5-5.1)
[2023-03-09 06:07] LABS: PLATELET COUNT, AUTOMATED 53 10^3/uL (150-450)
[2023-03-09] MEDS: MAG SULF 1GM/100ML (MAG RUN) 1 GM in IV 1 EA IV SCH ×2 (07:07→08:28)
[2023-03-09 07:29] VITALS: BP 141/67; TEMP 97.8; O2SAT 96
[2023-03-09] MEDS: MULTIVITAMINS/MINERALS THERAP 1 TAB PO SCH (08:27)
[2023-03-09] MEDS: PANTOPRAZOLE 40MG TAB (PROTONIX) PO SCH (08:27)
[2023-03-09] MEDS: FOLIC ACID 1MG TAB PO SCH (08:27)
[2023-03-09] MEDS: MAGNESIUM OXIDE 400MG TAB (MAG-OX) PO SCH ×2 (08:27→21:29)
[2023-03-09] MEDS: CIPRODEX OTIC SUSP 7.5ML AS SCH ×2 (08:28→21:29)
[2023-03-09] MEDS: AUGMENTIN 500MG TAB PO SCH ×2 (08:28→21:29)
[2023-03-09] MEDS: LACTULOSE 20GM/30ML SYRUP UDC PO SCH ×2 (11:12→21:00)
[2023-03-09 11:26] VITALS: BP 139/76; TEMP 98.1; O2SAT 97
[2023-03-09 16:18] VITALS: BP 139/72; TEMP 97.3; O2SAT 97
[2023-03-09 20:00] VITALS: BP 149/78; TEMP 97.5; O2SAT 97
[2023-03-10] VITALS (8 sets, daily range): BP systolic 113–143; BP diastolic 56–81; TEMP 97.2–98.6; O2SAT 96–100
[2023-03-10] MEDS: LEVOTHYROXINE 25MCG TABLET (0.025MG) PO SCH (06:10)
[2023-03-10 06:40] LABS: BASO % 0.3 % (0.0-1.0); EOS # 0.1 10^3/uL (0.0-0.5); HEMATOCRIT 27.2 % (42.0-52.0); HEMOGLOBIN 9.2 g/dl (13.5-17.5); LYMPH # 1.9 10^3/uL (1.5-5.0); LYMPH % 30.5 % (24.0-44.0); MEAN CORPUSCULAR HEMOGLOBIN 33.7 pg (27.0-33.0); MEAN CORPUSCULAR HGB CONC 33.8 g/dl (32.0-36.5); MEAN CORPUSCULAR VOLUME 99.6 fl (80.0-96.0); MONO # 0.5 10^3/uL (0.0-0.8); MONO % 7.8 % (2.0-8.0); NEUTROPHILS # 3.6 10^3/uL (1.5-8.5); NEUTROPHILS % 59.1 % (36.0-66.0); RED BLOOD COUNT 2.73 10^6/uL (4.30-6.10); WHITE BLOOD COUNT 6.1 10^3/uL (4.0-10.0)
[2023-03-10 06:49] LABS: PLATELET COUNT, AUTOMATED 53 10^3/uL (150-450)
[2023-03-10 07:06] LABS: ALBUMIN 1.9 G/DL (3.2-5.2); BILIRUBIN,TOTAL 0.7 MG/DL (0.3-1.2); CALCIUM LEVEL 7.4 MG/DL (8.3-10.6); CREATININE FOR GFR 2.13 MG/DL (0.70-1.30); POTASSIUM SERUM 3.6 MMOL/L (3.5-5.1)
[2023-03-10] MEDS: LACTULOSE 20GM/30ML SYRUP UDC PO SCH ×2 (09:00→09:15)
[2023-03-10] MEDS: FOLIC ACID 1MG TAB PO SCH (09:16)
[2023-03-10] MEDS: MULTIVITAMINS/MINERALS THERAP 1 TAB PO SCH (09:16)
[2023-03-10] MEDS: MAGNESIUM OXIDE 400MG TAB (MAG-OX) PO SCH ×2 (09:16→21:05)
[2023-03-10] MEDS: PANTOPRAZOLE 40MG TAB (PROTONIX) PO SCH (09:16)
[2023-03-10] MEDS: AUGMENTIN 500MG TAB PO SCH ×2 (09:16→21:05)
[2023-03-10] MEDS: CIPRODEX OTIC SUSP 7.5ML AS SCH ×2 (09:16→21:05)
[2023-03-10] MEDS ORDERED: FUROSEMIDE 100MG/10ML VIAL IV ONE (12:00)
[2023-03-11 00:27] VITALS: BP 127/67; TEMP 97.6; O2SAT 100
[2023-03-11 04:20] VITALS: BP 125/58; TEMP 97.2; O2SAT 99
[2023-03-11] MEDS: LEVOTHYROXINE 25MCG TABLET (0.025MG) PO SCH (05:52)
[2023-03-11 06:52] LABS: BASO % 0.2 % (0.0-1.0); EOS # 0.1 10^3/uL (0.0-0.5); EOS % 2.4 % (0.0-3.0); LYMPH # 2.1 10^3/uL (1.5-5.0); LYMPH % 35.3 % (24.0-44.0); MEAN CORPUSCULAR HEMOGLOBIN 33.2 pg (27.0-33.0); MEAN CORPUSCULAR HGB CONC 33.3 g/dl (32.0-36.5); MEAN CORPUSCULAR VOLUME 99.6 fl (80.0-96.0); MONO # 0.4 10^3/uL (0.0-0.8); MONO % 7.1 % (2.0-8.0); NEUTROPHILS # 3.2 10^3/uL (1.5-8.5); NEUTROPHILS % 54.7 % (36.0-66.0); RED BLOOD COUNT 2.71 10^6/uL (4.30-6.10); WHITE BLOOD COUNT 5.9 10^3/uL (4.0-10.0)
[2023-03-11 06:55] LABS: PLATELET COUNT, AUTOMATED 52 10^3/uL (150-450)
[2023-03-11 07:20] LABS: ALBUMIN 1.9 G/DL (3.2-5.2); BILIRUBIN,TOTAL 0.7 MG/DL (0.3-1.2); CALCIUM LEVEL 7.5 MG/DL (8.3-10.6); CREATININE FOR GFR 2.51 MG/DL (0.70-1.30); GLOMERULAR FILTRATION RATE 27.3 (>49); MAGNESIUM LEVEL 1.9 MG/DL (1.8-2.4); POTASSIUM SERUM 3.4 MMOL/L (3.5-5.1); TOTAL PROTEIN 5.2 G/DL (5.7-8.2)
[2023-03-11 07:37] VITALS: BP 104/56; TEMP 96.8; O2SAT 98
[2023-03-11 07:47] LABS: INR 1.18; PROTHROMBIN TIME 15.3 SECONDS (12.5-14.5)
[2023-03-11] MEDS: MULTIVITAMINS/MINERALS THERAP 1 TAB PO SCH (09:19)
[2023-03-11] MEDS: FOLIC ACID 1MG TAB PO SCH (09:19)
[2023-03-11] MEDS: PANTOPRAZOLE 40MG TAB (PROTONIX) PO SCH (09:19)
[2023-03-11] MEDS: AUGMENTIN 500MG TAB PO SCH ×2 (09:19→20:21)
[2023-03-11] MEDS: CIPRODEX OTIC SUSP 7.5ML AS SCH ×2 (09:20→20:22)
[2023-03-11] MEDS: MAGNESIUM OXIDE 400MG TAB (MAG-OX) PO SCH ×2 (09:20→20:21)
[2023-03-11] MEDS: LACTULOSE 20GM/30ML SYRUP UDC PO SCH (09:23)
[2023-03-11 11:41] VITALS: BP 126/68; TEMP 97.4; O2SAT 100
[2023-03-11] MEDS ORDERED: POTASSIUM CHLORIDE 10MEQ SR TABLET PO ONE (13:00)
[2023-03-11] MEDS: TORSEMIDE 20 MG TAB PO SCH ×2 (13:11→20:22)
[2023-03-11 16:00] VITALS: BP 124/64; TEMP 98.6; O2SAT 98
[2023-03-11] MEDS: SPIRONOLACTONE 50 MG TAB PO SCH (16:17)
[2023-03-11 20:00] VITALS: BP 141/70; TEMP 97.2; O2SAT 99
[2023-03-12] VITALS: BP 121/63; TEMP 97.9; O2SAT 97
[2023-03-12 03:38] VITALS: BP 125/71; TEMP 97.5; O2SAT 98
[2023-03-12 05:09] LABS: BASO % 0.3 % (0.0-1.0); EOS # 0.2 10^3/uL (0.0-0.5); EOS % 2.3 % (0.0-3.0); HEMATOCRIT 27.7 % (42.0-52.0); LYMPH # 2.3 10^3/uL (1.5-5.0); LYMPH % 35.6 % (24.0-44.0); MEAN CORPUSCULAR HEMOGLOBIN 32.4 pg (27.0-33.0); MEAN CORPUSCULAR HGB CONC 32.5 g/dl (32.0-36.5); MEAN CORPUSCULAR VOLUME 99.6 fl (80.0-96.0); MONO # 0.4 10^3/uL (0.0-0.8); MONO % 6.5 % (2.0-8.0); NEUTROPHILS # 3.5 10^3/uL (1.5-8.5); NEUTROPHILS % 54.8 % (36.0-66.0); RED BLOOD COUNT 2.78 10^6/uL (4.30-6.10); WHITE BLOOD COUNT 6.4 10^3/uL (4.0-10.0)
[2023-03-12 05:16] LABS: PLATELET COUNT, AUTOMATED 67 10^3/uL (150-450)
[2023-03-12 05:36] LABS: ALBUMIN 1.9 G/DL (3.2-5.2); BILIRUBIN,TOTAL 0.7 MG/DL (0.3-1.2); CALCIUM LEVEL 7.7 MG/DL (8.3-10.6); CREATININE FOR GFR 2.94 MG/DL (0.70-1.30); GLOMERULAR FILTRATION RATE 22.7 (>49); POTASSIUM SERUM 3.9 MMOL/L (3.5-5.1); TOTAL PROTEIN 5.3 G/DL (5.7-8.2)
[2023-03-12] MEDS: FOLIC ACID 1MG TAB PO SCH (06:11)
[2023-03-12] MEDS: LEVOTHYROXINE 25MCG TABLET (0.025MG) PO SCH (06:11)
[2023-03-12] MEDS: CIPRODEX OTIC SUSP 7.5ML AS SCH (06:12)
[2023-03-12 08:00] VITALS: BP 120/68; TEMP 98.1; O2SAT 97
[2023-03-12] MEDS: LACTULOSE 20GM/30ML SYRUP UDC PO SCH (09:00)
[2023-03-12] MEDS: AUGMENTIN 500MG TAB PO SCH (09:20)
[2023-03-12] MEDS: SPIRONOLACTONE 50 MG TAB PO SCH (09:20)
[2023-03-12] MEDS: MAGNESIUM OXIDE 400MG TAB (MAG-OX) PO SCH (09:21)
[2023-03-12] MEDS: TORSEMIDE 20 MG TAB PO SCH (09:21)
[2023-03-12] MEDS: MULTIVITAMINS/MINERALS THERAP 1 TAB PO SCH (09:21)
[2023-03-12] MEDS: PANTOPRAZOLE 40MG TAB (PROTONIX) PO SCH (09:21)
[2023-03-12 12:33] VITALS: BP 151/86; TEMP 96.9; O2SAT 96
[2023-03-12] MEDS ORDERED: OCTREOTIDE ACETATE 100MCG/ML VIAL **SC ADMINISTRATION ONLY SC SCH (14:00)
[2023-03-12] MEDS ORDERED: MORPHINE 10MG/0.5ML ORAL CONCENTRATE SOLUTION U/D SL PRN (14:45)
[2023-03-12] MEDS ORDERED: HYOSCYAMINE SULFATE 0.125 MG SUBL TABLET PO PRN (14:45)
[2023-03-12] MEDS ORDERED: LORazepam 1 MG TAB PO PRN (14:45)
[2023-03-12] MEDS ORDERED: ONDANSETRON 4MG ORAL DISINTEGRATING TAB PO PRN (14:45)
[2023-03-12 15:09] VITALS: BP 149/75; TEMP 97.1; O2SAT 95
[2023-03-12] MEDS ORDERED: LACTULOSE 20GM/30ML SYRUP UDC PO PRN (15:35)
[2023-03-13] MEDS: PANTOPRAZOLE 40MG TAB (PROTONIX) PO SCH (09:00)
[2023-03-14] MEDS: PANTOPRAZOLE 40MG TAB (PROTONIX) PO SCH (09:01)
[2023-03-15] MEDS: PANTOPRAZOLE 40MG TAB (PROTONIX) PO SCH (08:36)
[2023-03-16] MEDS: PANTOPRAZOLE 40MG TAB (PROTONIX) PO SCH (08:38)
[2023-03-16] MEDS ORDERED: OXYC1TAB23 PO (13:39)
[2023-03-16] MEDS ORDERED: ATIV1TAB10 PO (13:39)
== END 2023-03-16 14:05 | disposition left against medical advice (07) | DRG 987 ==
LOC: M ED 12:58 → EDBD 12:58 → M ED INP 19:56 → ENRESERV 03-06 14:43 → M PCU 03-06 18:00 → M MS5PR 03-14 22:00
PROVIDERS: ADMIT Internal Medicine; ATTEND Internal Medicine
PROC: 30233N1 Transfusion of Nonautologous Red Blood Cells into Peripheral Vein, Percutaneous Approach (ICD-10-PCS; 2023-03-06)
PROC: F09Z3ZZ Cerumen Management Treatment (ICD-10-PCS; 2023-03-06)
PROC: 099 Ear, Nose, Sinus, Drainage (ICD-10-PCS; principal; 2023-03-06 14:00)
PROC: 0W9G3ZZ Drainage of Peritoneal Cavity, Percutaneous Approach (ICD-10-PCS; 2023-03-07)
PROC: 0JH63XZ Insertion of Tunneled Vascular Access Device into Chest Subcutaneous Tissue and Fascia, Percutaneous Approach (ICD-10-PCS; 2023-03-07)
PROC: 02HV33Z Insertion of Infusion Device into Superior Vena Cava, Percutaneous Approach (ICD-10-PCS; 2023-03-07)
PROC: 5A1D70Z Performance of Urinary Filtration, Intermittent, Less than 6 Hours Per Day (ICD-10-PCS; 2023-03-07)
DX: K70.31 Alcoholic cirrhosis of liver with ascites (principal); K76.7 Hepatorenal syndrome; N17.9 Acute kidney failure, unspecified; N39.0 Urinary tract infection, site not specified; J90 Pleural effusion, not elsewhere classified; J98.11 Atelectasis; E87.20 Acidosis, unspecified; E87.1 Hypo-osmolality and hyponatremia; K76.6 Portal hypertension; Q60.0 Renal agenesis, unilateral; I13.0 Hypertensive heart and chronic kidney disease with heart failure and stage 1 through stage 4 chronic kidney disease, or unspecified chronic kidney disease; I50.32 Chronic diastolic (congestive) heart failure; D69.6 Thrombocytopenia, unspecified; N18.30 Chronic kidney disease, stage 3 unspecified; I12.9 Hypertensive chronic kidney disease with stage 1 through stage 4 chronic kidney disease, or unspecified chronic kidney disease; M46.1 Sacroiliitis, not elsewhere classified; E78.5 Hyperlipidemia, unspecified; I25.10 Atherosclerotic heart disease of native coronary artery without angina pectoris; K21.9 Gastro-esophageal reflux disease without esophagitis; R53.1 Weakness; H66.92 Otitis media, unspecified, left ear; H70.92 Unspecified mastoiditis, left ear; R19.7 Diarrhea, unspecified; M54.9 Dorsalgia, unspecified; G89.29 Other chronic pain; R26.9 Unspecified abnormalities of gait and mobility; R60.0 Localized edema; Z95.1 Presence of aortocoronary bypass graft; R29.6 Repeated falls; M10.9 Gout, unspecified; R60.1 Generalized edema; H61.23 Impacted cerumen, bilateral; E03.9 Hypothyroidism, unspecified; D63.8 Anemia in other chronic diseases classified elsewhere; R62.7 Adult failure to thrive; E87.70 Fluid overload, unspecified; M51.36 Other intervertebral disc degeneration, lumbar region; E78.00 Pure hypercholesterolemia, unspecified; E83.42 Hypomagnesemia; M48.061 Spinal stenosis, lumbar region without neurogenic claudication; R16.1 Splenomegaly, not elsewhere classified; Z79.899 Other long term (current) drug therapy

== ENCOUNTER → 2023-03-26 | Outpatient (REF) | payer MEDICARE, OTHER ==
[~2023-03-26] MED LIST: ALLO10TA PO; ATIV1TAB10 PO; B-1100TA2 PO; B-12100T2 PO; CARV12.5 PO; OMEP1CAP73 PO; OXYC1TAB23 PO; ROSU40TA4 PO
[2023-03-26 18:04] LABS: FOLATE 13.1 NG/ML (>5.4)
== END ==
LOC: M LAB REF 17:04
PROVIDERS: ATTEND Nurse Practitioner Family
DX: N18.9 Chronic kidney disease, unspecified (principal); D63.1 Anemia in chronic kidney disease

== ENCOUNTER 2023-03-31 13:37 | Inpatient (IN) | payer MEDICARE, OTHER ==
[2023-03-31] VITALS (19 sets, daily range): BP systolic 72–122; BP diastolic 47–62; O2SAT 91–100
[~2023-03-31] VITALS: Ht 180.3 cm; Wt 75.6 kg
[2023-03-31] MEDS ORDERED: PANTOPRAZOLE 40MG VIAL IV ONE (14:10)
[2023-03-31] MEDS ORDERED: OCTREOTIDE ACETATE 100MCG/ML VIAL **IV ADMINISTRATION ONLY IV ONE (14:10)
[2023-03-31] MEDS ORDERED: NADO40TA PO (14:31)
[2023-03-31] MEDS ORDERED: SPIR50TA4 PO (14:31)
[2023-03-31] MEDS ORDERED: NS 1,000 ML IV ONE (14:50)
[2023-03-31 14:52] LABS: BASO % 0.1 % (0.0-1.0); EOS % 0.5 % (0.0-3.0); HEMATOCRIT 40.6 % (42.0-52.0); HEMOGLOBIN 13.7 g/dl (13.5-17.5); LYMPH # 3.6 10^3/uL (1.5-5.0); LYMPH % 44.4 % (24.0-44.0); MEAN CORPUSCULAR HEMOGLOBIN 31.9 pg (27.0-33.0); MEAN CORPUSCULAR HGB CONC 33.7 g/dl (32.0-36.5); MEAN CORPUSCULAR VOLUME 94.6 fl (80.0-96.0); MONO # 0.5 10^3/uL (0.0-0.8); MONO % 5.7 % (2.0-8.0); NEUTROPHILS # 3.9 10^3/uL (1.5-8.5); NEUTROPHILS % 49.1 % (36.0-66.0); PLATELET COUNT, AUTOMATED 231 10^3/uL (150-450); RED BLOOD COUNT 4.29 10^6/uL (4.30-6.10)
[2023-03-31 15:04] LABS: INR 1.07; PROTHROMBIN TIME 13.6 SECONDS (12.5-14.5)
[2023-03-31 15:05] LABS: PARTIAL THROMBOPLASTIN TIME 30.6 SECONDS (24.8-34.2)
[2023-03-31 15:27] LABS: MAGNESIUM LEVEL 2.3 MG/DL (1.8-2.4); PHOSPHORUS LEVEL 6.8 MG/DL (2.4-5.1)
[2023-03-31 15:28] LABS: RSV AMPLIFICATION NEGATIVE (NEGATIVE)
[2023-03-31 15:29] LABS: FREE T4 0.82 NG/DL (0.89-1.76); THYROID STIMULATING HORMONE 22.006 uIU/ML (0.55-4.78)
[2023-03-31 15:33] LABS: ALBUMIN 2.3 G/DL (3.2-5.2); BILIRUBIN,DIRECT 0.8 MG/DL (<0.4); BILIRUBIN,TOTAL 1.5 MG/DL (0.3-1.2); CALCIUM LEVEL 8.6 MG/DL (8.3-10.6); CK-MB VALUE MASS 2.8 NG/ML (<3.6); CREATININE FOR GFR 5.51 MG/DL (0.70-1.30); MB/CK RELATIVE INDEX 5.95 (< OR =4); POTASSIUM SERUM 5.5 MMOL/L (3.5-5.1); TOTAL PROTEIN 6.9 G/DL (5.7-8.2)
[2023-03-31] MEDS ORDERED: MED REC IN PROGRESS XX SCH (16:25)
[2023-03-31] MEDS ORDERED: LR 1,000 ML IV ONE (16:30)
[2023-03-31] MEDS ORDERED: HOME MED LIST COMPLETE! XX SCH (17:15)
[2023-03-31 18:41] LABS: ABG BASE EXCESS -11.6 (-2.0-2.0); ABG HCO3 13.7 MMOL/L (22.0-26.0); ABG O2 SATURATION 98.4 % (95.0-99.0); ABG PARTIAL PRESSURE CO2 29.5 mmHg (35.0-45.0); ABG PARTIAL PRESSURE O2 151.5 mmHg (75.0-100.0); ABG STANDARD HCO3 15.3 MMOL/L. (22.0-26.0); ABG TOTAL CO2 14.6 MMOL/L (23.0-31.0); ABG pH (ARTERIAL) 7.286 UNITS (7.350-7.450)
[2023-03-31] MEDS: DOPamine HCL 400 MG in IV 1 EA IV SCH ×2 (19:07→19:25)
[2023-03-31] MEDS: PANTOPRAZOLE 40MG VIAL IV SCH (20:45)
[2023-03-31 21:05] LABS: OSMOLALITY URINE 358 MOSM/KG (50-1400)
[2023-03-31 21:12] LABS: HEMATOCRIT 36.9 % (42.0-52.0); HEMOGLOBIN 11.9 g/dl (13.5-17.5); MEAN CORPUSCULAR HEMOGLOBIN 31.9 pg (27.0-33.0); MEAN CORPUSCULAR HGB CONC 32.2 g/dl (32.0-36.5); MEAN CORPUSCULAR VOLUME 98.9 fl (80.0-96.0); PLATELET COUNT, AUTOMATED 200 10^3/uL (150-450); RED BLOOD COUNT 3.73 10^6/uL (4.30-6.10); WHITE BLOOD COUNT 8.3 10^3/uL (4.0-10.0)
[2023-03-31 21:26] LABS: CREATININE,RANDOM URINE 156.6 MG/DL
[2023-03-31 21:28] LABS: SODIUM,RANDOM URINE < 10 MMOL/L
[2023-03-31 21:40] LABS: CALCIUM LEVEL 8.2 MG/DL (8.3-10.6); CREATININE FOR GFR 5.58 MG/DL (0.70-1.30); GLOMERULAR FILTRATION RATE 10.8 (>49); PHOSPHORUS LEVEL 6.8 MG/DL (2.4-5.1); POTASSIUM SERUM 4.6 MMOL/L (3.5-5.1)
[2023-03-31] MEDS: HYDROMORPHONE HCL 0.5 MG/ 0.5 ML SYRINGE IV PRN (22:02)
[2023-04-01] VITALS (79 sets, daily range): BP systolic 85–123; BP diastolic 51–72; TEMP 96.2–97.6; O2SAT 65–100
[2023-04-01] MEDS: LORazepam 2 MG/ML 1ML VIAL IV PRN ×2 (00:14→21:04)
[2023-04-01] MEDS: HYDROMORPHONE HCL 0.5 MG/ 0.5 ML SYRINGE IV PRN (00:15)
[2023-04-01 00:43] LABS: HEMATOCRIT 42.6 % (42.0-52.0); HEMOGLOBIN 13.2 g/dl (13.5-17.5); MEAN CORPUSCULAR HEMOGLOBIN 31.9 pg (27.0-33.0); MEAN CORPUSCULAR VOLUME 102.9 fl (80.0-96.0); PLATELET COUNT, AUTOMATED 189 10^3/uL (150-450); RED BLOOD COUNT 4.14 10^6/uL (4.30-6.10); WHITE BLOOD COUNT 10.1 10^3/uL (4.0-10.0)
[2023-04-01 07:09] LABS: HEMATOCRIT 40.9 % (42.0-52.0); HEMOGLOBIN 12.9 g/dl (13.5-17.5); MEAN CORPUSCULAR HEMOGLOBIN 31.7 pg (27.0-33.0); MEAN CORPUSCULAR HGB CONC 31.5 g/dl (32.0-36.5); MEAN CORPUSCULAR VOLUME 100.5 fl (80.0-96.0); PLATELET COUNT, AUTOMATED 196 10^3/uL (150-450); RED BLOOD COUNT 4.07 10^6/uL (4.30-6.10); WHITE BLOOD COUNT 13.5 10^3/uL (4.0-10.0)
[2023-04-01 07:39] LABS: CALCIUM LEVEL 8.2 MG/DL (8.3-10.6); CREATININE FOR GFR 5.71 MG/DL (0.70-1.30); GLOMERULAR FILTRATION RATE 10.6 (>49); POTASSIUM SERUM 5.8 MMOL/L (3.5-5.1)
[2023-04-01] MEDS: PANTOPRAZOLE 40MG VIAL IV SCH (08:43)
[2023-04-01 12:19] LABS: HEMOGLOBIN 13.3 g/dl (13.5-17.5); MEAN CORPUSCULAR HEMOGLOBIN 31.9 pg (27.0-33.0); MEAN CORPUSCULAR HGB CONC 31.7 g/dl (32.0-36.5); MEAN CORPUSCULAR VOLUME 100.7 fl (80.0-96.0); PLATELET COUNT, AUTOMATED 173 10^3/uL (150-450); RED BLOOD COUNT 4.17 10^6/uL (4.30-6.10); WHITE BLOOD COUNT 11.4 10^3/uL (4.0-10.0)
[2023-04-01] MEDS ORDERED: SODIUM BICARBONATE 150 MEQ in D5W 1,000 ML IV SCH (13:00)
[2023-04-01] MEDS: DOPamine HCL 400 MG in IV 1 EA IV SCH ×2 (13:50→14:54)
[2023-04-01 14:42] LABS: ABG BASE EXCESS -13.3 (-2.0-2.0); ABG HCO3 12.7 MMOL/L (22.0-26.0); ABG STANDARD HCO3 14.1 MMOL/L. (22.0-26.0)
[2023-04-01 14:45] LABS: ABG O2 SATURATION 92.8 % (95.0-99.0); ABG PARTIAL PRESSURE O2 72.3 mmHg (75.0-100.0); ABG TOTAL CO2 13.6 MMOL/L (23.0-31.0)
[2023-04-01 14:47] LABS: ABG pH (ARTERIAL) 7.243 UNITS (7.350-7.450)
[2023-04-01 15:01] LABS: CALCIUM LEVEL 8.2 MG/DL (8.3-10.6); CREATININE FOR GFR 5.92 MG/DL (0.70-1.30); GLOMERULAR FILTRATION RATE 10.1 (>49); POTASSIUM SERUM 5.3 MMOL/L (3.5-5.1)
[2023-04-01] MEDS ORDERED: fentaNYL 100 MCG/2 ML INJECTION IV ONE (18:25)
[2023-04-01] MEDS ORDERED: FUROSEMIDE 100MG/10ML VIAL IV ONE (20:15)
[2023-04-02] VITALS (28 sets, daily range): BP systolic 73–103; BP diastolic 50–61; TEMP 96–97.3; O2SAT 82–98
[2023-04-02 05:20] LABS: CALCIUM LEVEL 8.2 MG/DL (8.3-10.6); CREATININE FOR GFR 6.02 MG/DL (0.70-1.30); GLOMERULAR FILTRATION RATE 9.9 (>49); POTASSIUM SERUM 5.3 MMOL/L (3.5-5.1)
[2023-04-02] MEDS: LORazepam 2 MG/ML 1ML VIAL IV PRN (05:27)
[2023-04-02] MEDS: PANTOPRAZOLE 40MG VIAL IV SCH (09:20)
[2023-04-02] MEDS: DOPamine HCL 400 MG in IV 1 EA IV SCH (12:47)
== END 2023-04-02 14:19 | disposition expired | DRG 432 ==
LOC: M ED 13:37 → EDBD 13:37 → M ED INP 18:02 → M ICU 19:40
PROVIDERS: ADMIT Internal Medicine Critical Care Medicine; ATTEND Internal Medicine Critical Care Medicine
DX: K74.60 Unspecified cirrhosis of liver (principal); K76.7 Hepatorenal syndrome; N17.9 Acute kidney failure, unspecified; E87.20 Acidosis, unspecified; E87.1 Hypo-osmolality and hyponatremia; G93.49 Other encephalopathy; E78.5 Hyperlipidemia, unspecified; Z95.1 Presence of aortocoronary bypass graft; I25.10 Atherosclerotic heart disease of native coronary artery without angina pectoris; N18.30 Chronic kidney disease, stage 3 unspecified; K72.90 Hepatic failure, unspecified without coma; I95.9 Hypotension, unspecified; I12.9 Hypertensive chronic kidney disease with stage 1 through stage 4 chronic kidney disease, or unspecified chronic kidney disease; M10.9 Gout, unspecified; K21.9 Gastro-esophageal reflux disease without esophagitis; E87.5 Hyperkalemia; K76.82 Hepatic encephalopathy; R57.1 Hypovolemic shock; Z99.2 Dependence on renal dialysis; Z66 Do not resuscitate